=== PATIENT | male | born 1965 | race Caucasian/White ===

== ENCOUNTER 2018-11-16 12:12 | Emergency (ER) | payer OTHER, SELFPAY ==
[2018-11-16 12:36] VITALS: BP 99/62; PULSE 68; RESP 16; TEMP 36.7; O2SAT 96
--- NOTE | 2018-11-16 12:44 | DI.RAD_ITS ---
SYMPTOMS/DIAGNOSIS: COUGH, FEVER PA AND LATERAL CHEST: There are no prior comparison exams. The cardiac and mediastinal contours have a normal appearance. The lungs are well inflated and clear. No infiltrate or effusion is seen. IMPRESSION: Negative chest x-ray.
[2018-11-16 13:15] LABS: Abs Immature Grans 0.01 k/cumm (0.0-0.09); Absolute Basophil Count 0.01 k/cumm (0.0-0.2); Absolute Lymphocyte Count 0.84 k/cumm (1.2-3.4); Absolute Monocyte Count 0.86 k/cumm (0.11-0.7); Absolute Neutrophil Count 3.21 k/cumm (1.2-6.7); Basophils % 0.2; HCT 38.4 % (40.0-50.0); Immature Grans % 0.2; Mean Corp. HGB Concentration 33.9 g/dL (32.0-36.0); Mean Corpuscular Hemoglobin 31.3 pg (27.0-33.0); Mean Corpuscular Volume 92.3 fL (80-95); Mean Platelet Volume 9.6 fL (8.0-11.0); Monocytes % 17.4; Neutrophils % 65.2; Platelet Count 172 x1000/uL (130-400); RBC 4.16 m/cumm (4.50-6.00); RBC Distribution Width 12.6 % (11.8-14.1); White Blood Cell Count 4.93 k/cumm (4.4-10.8)
[2018-11-16 13:21] LABS: ALT 32 U/L (12-78); AST 30 U/L (15-37); Albumin 3.8 g/dL (3.4-5.0); Alkaline Phosphatase 26 U/L (46-116); Anion Gap 5.1 mmol/L (3-11); BUN 14 mg/dL (7-18); Bilirubin, Total 0.4 mg/dL (0.2-1.0); CO2 33.9 mmol/L (21.0-32.0); CREATININE 1.09 mg/dL (0.70-1.30); Calcium 8.9 mg/dL (8.5-10.1); Chloride 97 mmol/L (98-107); Glucose 105 mg/dL (70-100); Potassium 3.9 mmol/L (3.5-5.1); Sodium 136 mmol/L (136-145); Total Protein 7.5 g/dL (6.4-8.2)
--- NOTE | 2018-11-16 14:06 | ED.GENADUL_ITS ---
Discharge Plan Disposition Patient Disposition: HOME Condition: Stable Discharge Details Chief Complaint: RespSymp Clinical Impression: Influenza A Primary Care Provider: SHIRLENE LESLIE ED Provider: Levi Valente Home Meds and New Rx's Prescriptions: New benzonatate 200 mg capsule 200 mg PO TID PRN (Reason: cough) Qty: 30 RF: 0 Discharge Instructions Instructions: Influenza (ED) Additional Instructions: Please stay well-hydrated and use [id number] medication as needed for discomfort and symptoms. Please get plenty of rest as well. Stand Alone Forms: Work Release Discharge Data Discharge Date/Time-TO BE ENTERED AT DEPARTURE: 11/16/18 14:30 Medical Decision Making Flulike symptoms 2 days but recent trip back from [facility] and symptoms started immediately after returning. Other family members with similar illness. Given international travel plan to check flu test, labs, and chest x- ray. Physical exam is unremarkable with clear lung sounds and normal HEENT exam Influenza A positive otherwise nondiagnostic findings. Patient offered Tamiflu but refused treatment at this time which given the patient has no other significant medical history that increase his risk of complications from influenza I feel the patient can be safely discharged to follow-up with primary care as needed. Patient encouraged to stay well-hydrated, get plenty of rest, and use [id number] cough and cold medication as needed for symptomatic control. Patient was prescribed Tessalon Perles as well. Return precautions were discussed. After discussion of diagnosis and plan of care patient has no further needs, questions, or concerns and states clear understanding to return to the emergency department for any worsening symptoms. HPI General Mode of arrival: ambulatory . Date/Time Provider Initiated Documentation: 11/16/18 12:44 . Limitations to Documentation: no limitations . Information obtained by: patient and RN notes reviewed . History of Present Illness 53 year old M presents to the emergency department with the chief complaint of cough, fever, bodyaches, with intensity rated at 5. Quality is described as aching (Generalized body ache), Patient started experiencing this day(s) (2) and it has been constant. Patient did receive the following radhames tments prior to arrival, none Related Data Home Medications Medication Instructions Recorded Confirmed benzonatate 200 mg PO TID PRN #30 cap 11/16/18 Previous Rx's Medication Instructions Recorded benzonatate 200 mg PO TID PRN #30 cap 11/16/18 Allergies Allergy/AdvReac Type Severity Reaction Status Date / Time No Known Allergies Allergy Unverified 11/16/18 12:38 General Stated Complaint: RespSymp KAT: 4 Review of Systems Constitutional Reports body ache(s), Reports chills, Reports fever(s), Denies headache(s) and Reports malaise Eyes Denies eye discharge ENT Reports as per HPI, Denies ear discharge, Denies otalgia, Denies headache(s), Reports nasal congestion, Reports nasal discharge, Denies neck pain, Reports sore throat and Denies throat swelling Cardiovascular Denies chest pain and Denies dyspnea Respiratory Reports cough and Denies dyspnea Musculoskeletal Denies joint swelling and Denies neck pain Integumentary/Breasts Denies rash Neurologic Denies headache(s) Allergic/Immunologic Denies throat swelling [facility] Social History Smoking and Tabacco status: Never Exam Const General: cooperative, comfortable and no acute distress Orientation: alert and awake [facility] Head: normal to inspection, normocephalic and atraumatic Ears: hearing grossly normal bilaterally and TM's normal bilaterally General nose exam: external nose normal Face and sinus: normal facial exam and no erythema Mouth: oral mucosae normal, no drooling, no muffled voice and no trismus Throat: posterior oropharynx normal, tonsils normal and uvula midline Neck Neck: normal visual inspection, full ROM, no lymphadenopathy, no meningeal signs, trachea midline and supple Resp Effort & Inspection: normal respiratory effort and able to speak in complete sentences Auscultation: clear to auscultation bilaterally Cardio Rate: regular rate Rhythm: regular rhythm Heart Sounds: S1 normal, S2 normal, normal S1 and S2, no click, no gallops, no murmurs and no rubs Skin General skin exam: no rashes or lesions noted and dry skin (warm) Neuro General: alert, awake, oriented x3, gait normal and moves all extremities Cognition: normal cognition Speech: speech normal Course Vital Signs Temperature 36.7 C 11/16/18 12:36 Pulse 68 11/16/18 12:36 Respiratory Rate 16 11/16/18 12:36 Blood Pressure 99/62 L 11/16/18 12:36 Pulse Oximetry 96 11/16/18 12:36 Temperature 36.7 C 11/16/18 12:36 Temperature Source Skin 11/16/18 12:36 Pulse 68 11/16/18 12:36 Respiratory Rate 16 11/16/18 12:36 Respiratory Effort Non-Labored 11/16/18 12:36 Blood Pressure 99/62 L 11/16/18 12:36 Blood Pressure Position Sitting 11/16/18 12:36 Pulse Oximetry 96 11/16/18 12:36 Oxygen Delivery Method Room Air 11/16/18 12:36 Oxygen Flow Rate 0 11/16/18 12:36 Pain Level 0 11/16/18 12:36 Lab/Test Results Lab/Test Results: 11/16/18 12:55 Nasopharynx Influenza Types A,B Antigen - Final Laboratory Tests Range/Units 11/16/18 11/16/18 13:00 13:00 WBC (4.4-10.8) k/cumm 4.93 RBC (4.50-6.00) m/cumm 4.16 L Hgb (13.5-17.5) g/dL 13.0 L Hct (40.0-50.0) % 38.4 L MCV (80-95) fL 92.3 MCH (27.0-33.0) pg 31.3 MCHC (32.0-36.0) g/dL 33.9 RDW (11.8-14.1) % 12.6 Plt Count (130-400) x1000/uL 172 MPV (8.0-11.0) fL 9.6 Immature Gran % 0.2 Neutrophils % 65.2 Lymphocytes % 17.0 Monocytes % 17.4 Eosinophils % 0.0 Basophils % 0.2 Absolute Neutrophils (1.2-6.7) k/cumm 3.21 Absolute Lymphocytes (1.2-3.4) k/cumm 0.84 L Absolute Monocytes (0.11-0.7) k/cumm 0.86 H Absolute Eosinophils (0.0-0.7) k/cumm 0.00 Absolute Basophils (0.0-0.2) k/cumm 0.01 Sodium (136-145) mmol/L 136 Potassium (3.5-5.1) mmol/L 3.9 Chloride (98-107) mmol/L 97 L Carbon Dioxide (21.0-32.0) mmol/L 33.9 H Anion Gap (3-11) mmol/L 5.1 BUN (7-18) mg/dL 14 Creatinine (0.70-1.30) mg/dL 1.09 Estimated GFR/1.73 m2 (mL/min/1.73m2) >= 60.00 Glucose (70-100) mg/dL 105 H Calcium (8.5-10.1) mg/dL 8.9 Total Bilirubin (0.2-1.0) mg/dL 0.4 AST (15-37) U/L 30 ALT (12-78) U/L 32 Alkaline Phosphatase (46-116) U/L 26 L Total Protein (6.4-8.2) g/dL 7.5 Albumin (3.4-5.0) g/dL 3.8
== END 2018-11-16 14:30 | disposition home or self-care (01) ==
PROVIDERS: Emergency Provider Nurse Practitioner Family; PCP Internal Medicine
DX: J10.1 Influenza due to other identified influenza virus with other respiratory manifestations (principal)
CPT/HCPCS: 36415; 80053; 87449; 99284; 71046; 85025

== ENCOUNTER 2019-08-07 22:04 | Emergency (ER) | payer OTHER, SELFPAY ==
[2019-08-07 22:06] VITALS: BP 120/77; PULSE 76; RESP 16; TEMP 36.5; O2SAT 95
--- NOTE | 2019-08-07 22:59 | ED.GENADUL_ITS ---
Discharge Plan Disposition Patient Disposition: HOME Condition: Good Discharge Details Chief Complaint: Laceration Clinical Impression: Laceration Primary Care Provider: SHIRLENE LESLIE ED Provider: Ashish Pham Home Meds and New Rx's Prescriptions: No Action No Known Home Meds RF: 0 Discharge Instructions Instructions: Laceration (ED) Additional Instructions: Please leave the dressing on for 24 hours, then you may remove and begin cleaning the wound at least twice a day with soap and water at the 48-hour heriberto. Do not directly soak the area. Watch for any signs of infection and return if any increasing redness, swelling, pain, drainage. Please return in 7 days for reevaluation and removal of sutures. If you notice any worsening of your symptoms, or any new symptoms such as vomiting, diarrhea, fever, chills, shortness of breath, chest pain, numbness, weakness, or fainting , please return immediately to the emergency department for reevaluation. Please follow up with your primary care provider as soon as possible for reassessment and reevaluation. As always, it was a pleasure participating in your medical care today. Referrals: SHIRLENE LESLIE [Primary Care Provider] - Discharge Data Discharge Date/Time-TO BE ENTERED AT DEPARTURE: 08/07/19 23:15 Medical Decision Making Pleasant [id number] 54-year-old male not on blood thinners his tetanus is not up-to-date presents with a laceration to the medial aspect of the distal tip of his ring finger on his right hand. Structure/laceration is superficial, no deep tendon involvement. There was cleaned vigorously, scrubbed, and anesthetized, then sutured with 3 simple interrupted sutures using 5-0 nylon. Patient tolerated this well. Small amount of Dermabond was placed on the knots. Sensation and vascular exam is intact both after the procedure and after the tourniquet ring was removed. Tetanus is updated here. Discussed red flags for which to return and proper wound care management. I have extensively reviewed the treatment plan and discharge instructions with the patient and their family. I have addressed all patient concerns at this time. The patient and family was made aware of what symptoms to monitor for that would warrant a return to the emergency department. Discussed the plan with the patient and family, they demonstrate verbal understanding and agreement with our assessment and plan at this time. HPI General Date/Time Provider Initiated Documentation: 08/07/19 22:05 . HPI Narrative: This is a pleasant 54-year-old male who is right-hand dominant whose tetanus shot is not up-to-date who presents today for evaluation of laceration to his ring finger on his right hand. Patient cut it on a can just prior to arrival. He denies any numbness or tingling. Can was clean. He denies any other complaints of trauma. He is not on any blood thinners. Related Data Home Medications Medication Instructions Recorded Confirmed Unknown [No Known Home Meds] 08/07/19 08/07/19 Allergies Allergy/AdvReac Type Severity Reaction Status Date / Time No Known Allergies Allergy Unverified 11/16/18 12:38 General Stated Complaint: Laceration KAT: 4 Review of Systems All systems reviewed & are unremarkable except as noted in HPI and below [facility] Medical History (Updated 08/07/19 @ 22:08 by Diana Dee) No acute medical problems (Acute) Social History Smoking/Tobacco Use Status: Never Alcohol Intake: current Alcohol Intake frequency: 3 or more drinks per day Alcohol type: wine Drug use: Never Do you feel safe in your relationship?: Yes Exam Narrative Exam Narrative: 1.Const: Well-nourished, Well-developed, appearing stated age 2.Eyes: PERRL, no conjunctival injection, and symmetrical lids. 3.ENT: Atraumatic external nose and ears. Moist MM. Neck: Symmetric, trachea midline, No thyromegaly. 4.CVS: +S1/S2, No murmurs or gallops. Peripheral pulses 2+ and equal in all extremities. Brisk capillary refill in all extremities. 5.RESP: Unlabored respiratory effort. Clear to auscultation bilaterally. No wheezes rales or rhonchi 6.GI: Soft, Nontender/Nondistended, No hepatosplenomegaly. No guarding or rebound. 7.MSK: Normocephalic/Atraumatic, Extremities w/o deformity or ttp No cyanosis or clubbing, Normal movement of all extremities. Normal flexion and extension of the affected ring finger on the right hand, no decrease in two-point discrimination. Brisk capillary refill distal to the injury site. 8.Skin: Warm, Dry. Small 1 cm laceration along the medial aspect of the distal tip of the ring finger, no injury to the nail. Minimal active bleeding. No evidence of tendon involvement.. 9.Neuro: specialist wound care II-XII grossly intact. Sensation grossly intact, no focal neurologic deficits. 10.Psych: (AAO) x3. Appropriate mood and affect Course Vital Signs Vital signs: Vital Signs Temperature 36.5 C 08/07/19 22:06 Pulse 76 08/07/19 22:06 Respiratory Rate 16 08/07/19 22:06 Blood Pressure 120/77 08/07/19 22:06 Pulse Oximetry 95 08/07/19 22:06 Temperature 36.5 C 08/07/19 22:06 Pulse 76 08/07/19 22:06 Respiratory Rate 16 08/07/19 22:06 Respiratory Effort Non-Labored 08/07/19 22:09 Blood Pressure 120/77 08/07/19 22:06 Pulse Oximetry 95 08/07/19 22:06 Pain Level 2 08/07/19 22:09 Procedures Laceration Laceration 1: Site: other (Ring finger on right hand) Side (If applicable): right Size (cm): 1 Description: linear Depth: simple, single layer Local Anesthetic: Lidocaine 1% Amount of anesthesia used (mL): 2 Pre-repair: wound explored, irrigated extensively and deep structures intact Skin layer closed with: nylon Size (cm): 5-0 Number of sutures: 3 Technique: simple, interrupted
== END 2019-08-07 23:15 | disposition home or self-care (01) ==
PROVIDERS: Emergency Provider Student in an Organized Health Care Education/Training Program; PCP Internal Medicine
DX: S61.214A Laceration without foreign body of right ring finger without damage to nail, initial encounter (principal); W26.8XXA Contact with other sharp object(s), not elsewhere classified, initial encounter
CPT/HCPCS: 12001; 90471

== ENCOUNTER 2020-07-27 23:03 | Emergency (ER) | payer OTHER, SELFPAY ==
--- NOTE | 2020-07-27 23:00 | RT.EKG_ITS ---
APPROVED REPORT Exam: Resting ECG Patient Location: E HR:63 bpm ECG Measurements Heart Rate 63 AXIS ID 163 P 92 QRSd 87 QRS 79 QT 402 T 70 QTc 413 Conclusion Sinus rhythm...normal P axis, V-rate 60- 99 Consider left ventricular hypertrophy...(S V1+R V5/V6) >3.50mV I have reviewed and interpreted ECG and agree with software generated interpretation.
--- NOTE | 2020-07-27 23:05 | ED.GENADUL_ITS ---
Discharge Plan Disposition Patient Disposition: HOME Condition: Good Discharge Details Clinical Impression: BPV (benign positional vertigo) Primary Care Provider: SHIRLENE LESLIE ED Provider: Destin Hill Home Meds and New Rx's Prescriptions: No Action No Known Home Meds RF: 0 Discharge Instructions Instructions: Benign Paroxysmal Positional Vertigo (ED) Additional Instructions: Try doing the exercises that I have given you at home over the weekend. Remember to move slow. Do not drive until symptoms are controlled. If continued problems next week follow-up with ear nose and throat. Return to ED if you develop any new neurologic symptoms, prolonged vertigo, pass out, develop severe headache. Referrals: Gentry Shah DO [OSTEOPATHIC DOCTOR] - SHIRLENE LESLIE [Primary Care Provider] - Medical Decision Making History certainly seems consistent with BPPV. The fact that rolling onto his stomach resolved symptoms immediately is highly suggestive of this. Ángel- Hallpike maneuver was performed. With patient's head turned to the right he had almost immediate symptoms with about a 5-second lag when he was dropped back. He also developed symptoms sitting back up with head turned to the right. No symptoms with his head turned to the left. We discussed need to be careful with position changes, driving. He was given instructions on how to do modified Theodora maneuver at home. Follow-up with ENT 1 to 2 weeks if no improvement. Return to the ED for new or worsening neurologic symptoms, severe headache, syncope, other concerns. EKG done from triage is sinus rhythm with normal axis and intervals, possible LVH. No acute ST changes. ECG Data Attestation: I personally reviewed and interpreted this ECG (s) as follows: Interpretation: See EKG HPI General Mode of arrival: ambulatory . Date/Time Provider Initiated Documentation: 07/27/20 23:05 . Limitations to Documentation: no limitations . Information obtained by: patient and RN notes reviewed . HPI Narrative: Patient presents to ED with episode of dizziness and disequilibrium today. He has never had them previously. First episode occurred this morning as he was trying to get up from bed. He almost immediately fell back into bed. Eventually slid down to the floor and rolled onto his belly which resolved symptoms almost as immediately as they started. He was able to go about his day without further issue. Tonight as he was getting up to go to bed he had recurrent symptoms again short-lived and resolved with him lying on his belly. He has a history of tinnitus which has not changed. He has not been ill. He has no headache. He has no change in vision or double vision. He experienced no nausea or vomiting. He did get hot and sweaty when the sensation was intense. He had a mild episode of severe getting onto the stretcher. Currently feels well. Related Data Home Medications Medication Instructions Recorded Confirmed Unknown [No Known Home Meds] 08/07/19 07/27/20 Allergies Allergy/AdvReac Type Severity Reaction Status Date / Time No Known Allergies Allergy Unverified 07/27/20 23:15 General KAT: 4 Review of Systems Narrative: As documented in HPI otherwise negative as below. Const: no fever, chills, weakness Resp: no cough, SOB, pleuritic pain CV: no CP, edema, syncope GI: no abdominal pain, nausea, vomiting, diarrhea Neuro: no headache, numbness, focal weakness, confusion PFSH Medical History No significant past medical history Surgical History S/P hernia repair Social History Smoking/Tobacco Use Status: Never Smoking risk assessment performed?: Yes Alcohol Intake: current Alcohol Intake frequency: 3 or more drinks per day Alcohol type: beer and wine Drug use: Never Substance use type: does not use Do you feel safe at home: Yes Do you feel safe in your relationship?: Yes Exam Narrative Exam Narrative: Const: WDWN male in NAD. HEENT: NC/AT. Normal facial exam. TMs clear B. Eyes: Normal conjunctiva and sclera. PERRL and EOMI. No nystagmus. No diplopia. Neck: Supple. Trachea midline. Lungs: Normal respiratory effort. Lungs are clear. Cor: RRR without murmur/gallop. Good radial pulses. Neuro: A+O x 3. Normal speech, mentation, gait. Cranial nerves II - XII grossly intact. No gross motor or sensory deficit. Ext: No C/C/E. Skin: Warm and dry without rash.
[2020-07-27 23:07] VITALS: BP 128/68; PULSE 77; TEMP 36.2; O2SAT 98
[2020-07-27 23:13] VITALS: RESP 15
[2020-07-27 23:26] VITALS: BP 131/82; PULSE 67; RESP 17; O2SAT 97
[2020-07-27 23:27] VITALS: PULSE 67; RESP 23; O2SAT 97
[2020-07-27 23:30] VITALS: PULSE 78; RESP 19
[2020-07-27 23:40] VITALS: PULSE 68; RESP 17; O2SAT 97
[2020-07-28 00:13] VITALS: BP 131/82; PULSE 67; RESP 16; O2SAT 97
== END 2020-07-28 00:10 | disposition home or self-care (01) ==
PROVIDERS: Emergency Provider Emergency Medicine; PCP Internal Medicine
DX: H81.11 Benign paroxysmal vertigo, right ear (principal); H93.19 Tinnitus, unspecified ear
CPT/HCPCS: 93005; 95992; 99283; 93010